=== PATIENT | male | born 1990 | race Caucasian/White ===

== ENCOUNTER → 2016-10-16 | Outpatient (CLI) | payer BC ==
[~2016-10-16] MED LIST: DULCOLAX5 M1 PO; FLOMAX0.4 M1 PO; HYDROCODON-ACE1 EAC7 PO
--- NOTE | ~2016-10-16 | CR7 ---
[facility] A Service [facility] RADIOLOGY TEXT RESULTS PATIENT: LANEY COBOS LOCATION: [facility] : 91 UNIT #: [id number] AGE: [address]: Patric Rand MD SEX: M ORDER DR: [id number] [facility] [address] [place], [place] [address] [id number] O MR#: [id number] Acc #: [id number] NAME: LANEY COBOS : 1990 SEX: M STUDY DATE/TIME: 10/16/2016 9:10 UNIT: CLAB ROOM: STUDY DESCRIPTION: CR Abdomen Single AP View Attending Physician: Patric Rand M.D. Ordering Physician: Patric Rand M.D. Primary Care Physician: No Primary Care Physician MEDICAL IMAGING REPORT This report is preliminary unless electronic signature is present EXAM Frontal abdomen, 10/16/2016. INDICATION 26-year-old male with a history of kidney stones, flank pain and hematuria, right-sided flank pain and lithotripsy and stent placement week ago. Symptoms began 2 months ago. TECHNIQUE Frontal abdomen was performed. COMPARISON No comparisons. FINDINGS There is a radiopaque stent present on the right. The distal loop is coiled at the bladder level. The proximal loop is not completely formed but is probably at the level of the renal pelvis. It is possible that a portion of the unformed upper loop could extend into the upper pole collecting system. There is no radiopaque stone along the course of the stent. Probable vascular calcification in the right hemipelvis. Renal shadows obscured by air and fecal material. IMPRESSION 1. No radiopaque stone associated with the right-sided stent. 2. The proximal loop of the stent is not completely formed as described above. Dictated by... Jose Bustos M.D. [facility] A Service [facility] RADIOLOGY TEXT RESULTS PATIENT: LANEY COBOS LOCATION: [facility] : 91 UNIT #: [id number] AGE: [address]: Patric Rand MD SEX: M ORDER DR: THIS IS AN ELECTRONICALLY VERIFIED REPORT Jose Bustos M.D. at 10/17/2016 7:29 AM Shelly TD: 10/16/2016 23:46 JOB #: [id number] MEDICAL IMAGING REPORT Page 1 of 1 COPY
== END | disposition home or self-care (01) ==
LOC: CLAB 08:53
DX: N20.0 Calculus of kidney (principal); Z96.0 Presence of urogenital implants
CPT/HCPCS: 74000

== ENCOUNTER → 2016-10-17 | Day surgery (SDC) | payer BC ==
--- NOTE | ~2016-10-17 | OR ---
Unit #: [id number] #: [id number] Patient: LANEY COBOS [id number] [address] [place], [place] [address] [id number] O MR#: [id number] NAME: LANEY COBOS ROOM: Date of Procedure: 10/17/2016 Admission Date: 10/17/2016 Surgeon: Patric Rand M.D. : 1990 Attending Physician: Patric Rand M.D. Referring Physician: Patric Rand M.D. Primary Care Physician: Primary Care Physician No OPERATIVE REPORT PREOPERATIVE DIAGNOSIS Right ureteral and renal stones with ureteral stent. POSTOPERATIVE DIAGNOSIS Right ureteral and renal stones with ureteral stent. PROCEDURES PERFORMED 1. Right rigid and flexible ureteroscopy. 2. Basket extraction of renal and ureteral calculi. 3. Stent removal. ANESTHESIA General with local supplementation. INDICATIONS FOR PROCEDURE This 26-year-old man has significant persistent fragments by KUB despite 2 lithotripsies, the second preceded by a stent. There was a 5-mm stone in the upper ureter and a 3-mm stone in the kidney. DESCRIPTION OF PROCEDURE The patient was given preoperative antibiotics and satisfactory general anesthesia. In the dorsal lithotomy position, routine prep and drape were performed. The 21-Barbadian rigid cystoscope was introduced with a 30-degree lens and video, noting some encrustation of the distal stent curl. The distal stent curl was grasped and with some resistance extracted out the meatus. Then, a sensor guidewire passed up through it and the stent uneventfully removed the remainder of the way. A dual-lumen catheter was used to place a second guidewire, which in turn was used to advance the rigid ureteroscope without difficulty up the well dilated distal ureter passing scant fragments of stone and clot to where the main fragment was located in the upper ureter. There was no abnormality of the ureter in this location. The stone was grasped with a basket and was just small enough to extract without trauma to the ureter or using the laser. This was 5 mm, quite rough and hard looking and it was collected for chemical analysis. I again placed a second guidewire using the dual-lumen catheter and this time advanced, the flexible ureteroscope up to the kidney where the other fragment was immediately found in the posterior calyx. The remainder of the kidney was examined first and found to be free of clot or additional stones. The stone fragment was then grasped and extracted to complete the procedure which was well tolerated. A Uro-jet was applied. The patient will be discharged to follow up in 4 to 6 weeks with 24-hour Unit #: [id number] #: [id number] Patient: LANEY COBOS urine for stone risk and stones were sent for chemical analysis. Dictated by... Eduardo Anthony/ana TD: 10/18/2016 14:03 JOB #: [id number] OPERATIVE REPORT Page 1 of 1 X Patric Rand MD X PROCEDURE OPERATIVE NOTE
== END | disposition home or self-care (01) ==
LOC: CSUR 14:23
PROVIDERS: Urology
DX: N20.2 Calculus of kidney with calculus of ureter (principal); Z87.442 Personal history of urinary calculi; Z79.899 Other long term (current) drug therapy
CPT/HCPCS: 82365; C1758; J0690; J1100; J1885; J2250; J2270; J2765